=== PATIENT | female | born 1930 | race Caucasian/White ===

== ENCOUNTER 2016-02-22 21:43 | Observation (INO) | payer MEDICARE, OTHER ==
[~2016-02-22] VITALS: Ht 157.5 cm; Wt 66.4 kg
[2016-02-23] VITALS (7 sets, daily range): BP systolic 125–149; RESP 17–20; TEMP 98–98.7; Ht 157.5 cm; Wt 66.4 kg
[2016-02-23] MEDS ORDERED: SODIUM CHLORIDE 0.9% 0 ML ONE (02:15)
[2016-02-23] MEDS ORDERED: SODIUM CHLORIDE 0.9% 500 ML IV ONE (02:16)
[2016-02-23] MEDS ORDERED: MORPHINE 2 MG/ML SYR ONE ×2 (03:48→03:50)
[2016-02-23] MEDS ORDERED: ONDANSETRON 4 MG VIAL IV PUSH PRN (05:35)
[2016-02-23] MEDS ORDERED: ACETAMINOPHEN 325 MG TAB PO PRN (05:35)
[2016-02-23] MEDS ORDERED: MORPHINE 4 MG/ML SYR IV PRN (05:40)
[2016-02-23] MEDS ORDERED: MORPHINE 2 MG/ML SYR IV PRN (05:40)
[2016-02-23] MEDS ORDERED: METHYLPRED SOD SUCC 125 MG/2 ML VIAL IV ONE (06:54)
[2016-02-23] MEDS: GABAPENTIN 100 MG CAP PO SCH ×4 (08:23→21:38)
[2016-02-23] MEDS ORDERED: BACLOFEN 10 MG TAB PO PRN (17:30)
[2016-02-23] MEDS: CARBIDOPA/LEVODOPA 25/100 TAB PO SCH ×2 (17:30→21:38)
[2016-02-23] MEDS ORDERED: TRAMADOL 50 MG TAB PO PRN (17:45)
[2016-02-23] MEDS: LEVOTHYROXINE 0.1 MG TAB PO SCH (18:49)
[2016-02-23] MEDS: ASPIRIN EC 81 MG TAB PO SCH (18:49)
[2016-02-23] MEDS: CALCIUM PO SCH (18:49)
[2016-02-23] MEDS: VIT D PO SCH (18:49)
[2016-02-23] MEDS ORDERED: DONEPEZIL HCL 5 MG TAB PO SCH (21:00)
[2016-02-24] VITALS (8 sets, daily range): BP systolic 119–152; RESP 16–20; TEMP 97.3–98.6
[2016-02-24] MEDS: LEVOTHYROXINE 0.1 MG TAB PO SCH (07:13)
[2016-02-24] MEDS: ASPIRIN EC 81 MG TAB PO SCH (08:29)
[2016-02-24] MEDS: GABAPENTIN 100 MG CAP PO SCH (08:29)
[2016-02-24] MEDS: VIT D PO SCH (08:30)
[2016-02-24] MEDS: CALCIUM PO SCH (08:30)
[2016-02-24] MEDS: CARBIDOPA/LEVODOPA 25/100 TAB PO SCH ×2 (08:30→15:53)
[2016-02-24] MEDS ORDERED: DONEPEZIL 10 MG TABLET PO SCH ×2 (21:00)
== END 2016-02-24 11:08 ==
LOC: ENRESERVDT → ENRESERVTM → ER 21:43 → ENPENDDIS 21:44 → EMR 21:44 → UNDOADMOB 02-23 05:12 → EMR 02-23 05:12 → 3NT 02-23 06:44
PROVIDERS: ADMIT Internal Medicine; ATTEND Internal Medicine
DX: G20 Parkinson's disease (principal); F02.80 Dementia in other diseases classified elsewhere, unspecified severity, without behavioral disturbance, psychotic disturbance, mood disturbance, and anxiety; R53.1 Weakness; Z91.81 History of falling; M19.90 Unspecified osteoarthritis, unspecified site; E03.9 Hypothyroidism, unspecified; E55.9 Vitamin D deficiency, unspecified; M17.0 Bilateral primary osteoarthritis of knee; E78.5 Hyperlipidemia, unspecified; Z79.899 Other long term (current) drug therapy; Z79.82 Long term (current) use of aspirin; D75.1 Secondary polycythemia; R32 Unspecified urinary incontinence
CPT/HCPCS: 36415 ×2; 70450 ×2; 71010 ×2; 72170 ×2; 80053 ×2; 81003 ×2; 83735 ×2; 85025 ×2; 85610 ×2; 85730 ×2; 93005 ×2; 96361 ×2; 96374 ×2; 97110; 97162; 97165; 97530; 97799; 99285; G0378; G8978; G8979; G8987; G8988; J2930; J7040